=== PATIENT | male | born 1980 | race Caucasian/White ===

== ENCOUNTER 2021-07-06 16:29 | Emergency (ER) | payer OTHER, SELFPAY ==
[2021-07-06 17:30] VITALS: BP 140/96; PULSE 84; RESP 20; TEMP 36.8; O2SAT 99; BMI 36.5
--- NOTE | 2021-07-06 18:18 | HMH.EDUTC ---
[facility]ression: Finger lac[place] Qualifiers: Encounter type: initial encounter Finger: index finger Damage to nail status: without damage Foreign body presence: without foreign body Laterality: left Qualified Code(s): S61.211A - Laceration without foreign body of left index finger without damage to nail, initial encounter Disposition: Home, Self-Care Condition on Discharge: Good Instructions: How to Care for a Laceration After Repair, Laceration Repair Additional Instructions: Suture instructions: You have required stitches today. Please read the following instructions so you know how to care for them: 1. Keep wound area dry for the first 24 hours. 2 May clean gently with mild soap and water, after 48 hours to prevent crusting over suture knots. 3. You may shower if your provider gives permission but do not take a bath until the skin is healed.. 4. Never leave a wet dressing or Band-Aid on your stitches as this allows bacteria to reach the area and may cause infection. Band-aids can cause the wound to sweat and not recommended to wear for long periods of time Watch for signs of infection: Increasing redness, tenderness or warmth around the suture site Unusual swelling around the site Appearance of pus around each suture or any red streaks Fever If you develop any of the above signs or symptoms of infection, Follow up with Family Physician immediately 5. Suture removal in _7-10___days 6. Return to [facility] or follow up with family doctor for removal. This can be done by any medical provider during regular hours on Saturday through Saturday, by appointment. Referrals: Provider,Referral, MD [Primary Care Provider] - As needed Time of Disposition: 18:19 Medical Decision Making - aCrlos Inquiry Pt receiving controlled substance: No Carlos was queried for this patient: No Vital Signs: 07/06/21 17:30 Temperature 98.3 F Temperature Source Oral Pulse Rate [Right Brachial] 84 Respiratory Rate 20 Blood Pressure [Right Arm] 140/96 H Blood Pressure Mean [Right Arm] 110 Blood Pressure Source [Right Arm] Automatic Cuff Blood Pressure Position [Right Arm] Sitting 02 Sat by Pulse Oximetry 99 Oxygen Delivery Method Room Air Orders (Tests/Meds): ED MEDICATIONS Discontinued Medications Generic Name Dose Route Start Last Admin Trade Name Freq PRN Reason Stop Dose Admin Tetanus/Reduced Diphtheria/Acell Pertussis 0.5 ml 07/06/21 17:54 07/06/21 18:00 Tet/Diphth/Pert-Adult 0.5ml Syringe IM 07/06/21 17:55 0.5 ml .ONCE ONE Administration [facility] [place] - General Stated complaint: WO 07/06@1330 lac to L Index finger Time Seen by Provider: 07/06/21 17:45 Mode of Arrival: Ambulatory Source of Information: Patient Limitations: No Limitations Description of Symptoms (Recalled from Triage Doc. by RN): PATIENT C/O LACERATION TO LEFT INDEX FINGER AFTER CUTTING IT ON WINDOW SEAL TODAY AT 1330 HEENT Symptoms (Recalled from RN notes): No Resp Symptoms (Recalled from RN notes): No Skin Symptoms (Recalled from RN notes): Yes MS Symptoms (Recalled from RN notes): No Functional Status (Recalled from RN notes): WNL - History of Present Illness Provider Complaint: Patient states that they was cleaning out a house and was throwing stuff out the window when he accidently cut the pad of his left index finger on a window seal States that he wrapped it up thinking it would be ok but when he got home family told him that it needed stitches so he came in to get it checked and get a tetanus shot - Related Data Allergies Allergy/AdvReac Type Severity Reaction Status Date / Time No Known Allergies Allergy Verified 07/06/21 17:53 - Worker's Comp Is this a Worker's Comp case?: No [facility] History - Hepatitis A Screen Drug use history?: No High risk sexual behaviors?: No History of sexually transmitted infection?: No Currently employed?: No Childcare worker?: No Do you have indoor plumbing?: Yes Do you have
[2021-07-06 18:28] VITALS: BP 140/96; PULSE 84; RESP 20; TEMP 36.8; O2SAT 99
== END 2021-07-06 18:32 | disposition home or self-care (01) ==
PROVIDERS: Emergency Provider Nurse Practitioner
DX: S61.211A Laceration without foreign body of left index finger without damage to nail, initial encounter (principal); W25.XXXA Contact with sharp glass, initial encounter; Y92.69 Other specified industrial and construction area as the place of occurrence of the external cause; Y99.0 Civilian activity done for income or pay; Z23 Encounter for immunization
CPT/HCPCS: 12001; 90471; 90715; 99202; G0463

== ENCOUNTER 2021-07-16 18:27 | Emergency (ER) | payer OTHER, SELFPAY ==
[2021-07-16 18:30] VITALS: BP 128/78; PULSE 68; RESP 18; TEMP 36.6; O2SAT 100; BMI 34.8
[2021-07-16 18:35] VITALS: BP 128/78; PULSE 68; RESP 18; TEMP 36.6; O2SAT 100
== END 2021-07-16 18:38 | disposition home or self-care (01) ==
LOC: UTC 18:31
PROVIDERS: Emergency Provider Nurse Practitioner
DX: S61.211D Laceration without foreign body of left index finger without damage to nail, subsequent encounter (principal)